=== PATIENT | male | born 1985 | race Two or more races ===

== ENCOUNTER 2017-04-18 17:39 | Emergency (ER) | payer OTHER ==
[~2017-04-18] VITALS: Ht 188 cm; Wt 63.9 kg
[2017-04-18] MEDS ORDERED: BENZ-16 PO (21:41)
[2017-04-18 21:51] VITALS: BP 127/69
== END 2017-04-18 21:53 | disposition home or self-care (01) ==
LOC: ER 17:41
DX: J06.9 Acute upper respiratory infection, unspecified (principal); F17.200 Nicotine dependence, unspecified, uncomplicated; F12.10 Cannabis abuse, uncomplicated; Z87.442 Personal history of urinary calculi; Z91.030 Bee allergy status
CPT/HCPCS: 99283